=== PATIENT | male | born 1965 | race Caucasian/White ===

== ENCOUNTER 2016-12-19 07:53 | Emergency (ER) | payer BC ==
[2016-12-19 08:04] VITALS: BP 150/103
[2016-12-19] MEDS ORDERED: Aspirin Low Dose CHEW TAB* 81 MG PO ONE (09:32)
--- NOTE | 2017-01-03 00:29 | UC ---
Varun Russell Karl, scribed for Jessica Castle DO on 12/19/16 at 0824 . General HPI - HPI Summary HPI Summary: Pt is a 51 y/o male that presents to [facility] c/o sinus pain/pressure. Pt reported that he was put on abx 6 days ago for infected teeth and since getting his teeth pulled 2 days ago he has had an URI since with sneezing, sinus congestion , rhinorrhea, and a productive cough that is sometimes dry. Pt stated that inhaling has been irritating the inside of his nose and making him sneeze. Pt also reported diaphoresis during his sleep and intermittent SOB for approx 1-2 weeks mostly when he is trying to smoke. Pt stated that the cough has been coupled with his SOB for the several weeks and that his SOB is exacerbated by irritants and exertion. Pt also stated that laying down alleviates his symptoms and standing up or sitting aggravates them. Pt denied fever, nausea, vomiting, CP, jaw pain, ear ache, sore throat, dizziness and swelling in his legs. Hx: smoker 1 PPD. - History of Current Complaint Chief Complaint: UCRespiratory Stated Complaint: SINUS COMPLAINT Time Seen by Provider: 12/19/16 08:14 Hx Obtained From: Patient Onset/Duration: Gradual Onset, Lasting Days - 2, Still Present Timing: Constant Onset Severity: Moderate Current Severity: Moderate Pain Intensity: 8 - 0-10 numeric scale Pain Location at: Face/Sinuses Associated Signs & Symptoms: Positive: Cough, Diaphoresis, SOB. Negative: Chest Pain, Dizziness, Fever, Nausea, Vomiting - Allergy/Home Medications Allergies/Adverse Reactions: Allergies Allergy/AdvReac Type Severity Reaction Status Date / Time No Known Allergies Allergy Verified 12/19/16 08:04 Home Medications: Home Medications Amoxicillin CAP* 500 mg PO TID 12/19/16 [History Confirmed 12/19/16] PMH/Surg Hx/FS Hx/Imm Hx Previously Healthy: Yes - Surgical History Surgical History: Yes Surgery Procedure, Year, and Place: back surgeries - Family History Known Family History: Negative: Cardiac Disease, Hypertension, Diabetes - Social History Alcohol Use: Daily Alcohol Amount: 6-7 beers Substance Use Type: None Smoking Status (MU): Heavy Every Day Tobacco Smoker Amount Used/How Often: 1 ppd Cessation Counseling: Counseled 3+Min - 10 Min - Immunization History Most Recent Influenza Vaccination: fall 2015 Review of Systems Constitutional: Negative Skin: Negative Eyes: Negative ENT: Nasal Discharge, Other - sinus pain Respiratory: Shortness Of Breath, Cough Cardiovascular: Negative Gastrointestinal: Negative Genitourinary: Negative Motor: Negative Neurovascular: Negative Musculoskeletal: Negative Neurological: Negative Psychological: Negative All Other Systems Reviewed And Are Negative: Yes Physical Exam Triage Information Reviewed: Yes Appearance: Well-Appearing, No Pain Distress, Well-Nourished Vital Signs: Initial Vital Signs Temp 97.2 F 12/19/16 07:56 Pulse 88 12/19/16 07:56 Resp 28 12/19/16 07:56 BP 150/103 12/19/16 07:56 Pulse Ox 98 12/19/16 07:56 Vital Signs Reviewed: Yes Eyes: Positive: Conjunctiva Clear. Negative: Discharge ENT: Positive: Hearing grossly normal. Negative: Muffled/hoarse voice Neck exam: Normal Neck: Positive: Supple Respiratory: Positive: Chest non-tender, Lungs clear, Normal breath sounds, No respiratory distress Cardiovascular: Positive: RRR, No Murmur Musculoskeletal Exam: Normal Neurological: Positive: Alert, Muscle Tone Normal Psychological Exam: Normal Psychological: Positive: Age Appropriate Behavior Skin Exam: Normal - warm, dry, normal color Diagnostics - EKG Cardiac Rate: NL - at 69 bpm Cardiac Rhythm: Sinus: Normal - minimal ST elevations in v1 and v3 Course/Dx - Differential Dx - Multi-Symptom Provider Diagnoses: sinusitis, dyspnea Discharge - Discharge Plan Condition: Stable Disposition: AGAINST MEDICAL ADVICE Prescriptions: Amoxicillin/Clavulanate TAB* [Augmentin TAB 875*] 875 mg PO BID #14 tab Patient Education Materials: Sinusitis (ED), Dyspnea (ED) Referrals: No Primary Care Phys,NOPCP [Primary Care Provider] - Additional Instructions: YOU ARE LEAVING AGAINST MEDICAL ADVISE. WE HAVE RECOMMENDED TRANSFER TO THE ED FOR [facility] EVALUATION OF YOUR SHORTNESS OF BREATH. YOU HAVE REFUSED. YOUR RISKS INCLUDE DAMAGE TO THE HEART, CARDIAC ARRYTHMIA, CARDIAC/RESPIRATORY ARREST AND . IF YOU CHANGE YOUR MIND, YOU CAN STILL GO TO THE ED AT ANY TIME. TRY USING THE NETTI POT IN THE MORNINGS DISCUSSED. YOU MUST ALWAYS USE CLEAN WATER. REMEMBER, POSTURE IS AN IMPORTANT FACTOR IN SINUS DRAINAGE. MOVE YOUR NECK, BREATHE. AUGMENTIN: Augmentin is a mixture of amoxicillin and clavulanate. Amoxicillin is a member of the penicillin family. It covers the germs likely to cause ear, bronchial, and urinary infections better than plain penicillin. The addition of clavulanate allows it to cover staph infections of the skin, as well as resistant cases of ear and sinus infections. Your physician has chosen Augmentin for you because of the special nature of your situation. Augmentin is best taken with meals. Nausea after taking the medication is rare, but can occur. Diarrhea can occur, particularly in small children. Vaginal yeast infections, and oral thrush in infants are also common. Contact your physician if these problems occur. Allergy to penicillins is common. If you have had an allergic reaction to any drug of the penicillin family, you should never take any other penicillin. Notify your doctor at once if you develop hives, shortness of breath, swelling, or faintness. ANY TIME YOU TAKE AN ANTIBIOTIC, IT IS IMPORTANT TO REPLENISH THE BODY'S BALANCE OF "GOOD" BACTERIA BY EATING HIGH QUALITY CULTURED FOOD SUCH YOGURT, SAURKRAUT OR GENOVEVA CHI AND/OR TAKING A PROBIOTIC SUPPLEMENT. FOLLOW-UP CARE: You should establish with a private physician for follow-up care TODAYS OR TOMORROW. If you are unable to get a timely appointment, or if you are worsening, call us or return for re-evaluation. An additional resource available to assist in finding the appropriate physician for your health care needs is the [facility]erral Center. You may contact them by calling [phone]. The documentation as recorded by the Varun reveles Karl accurately reflects the service I personally performed and the decisions made by , Jessica Castle DO.
== END 2016-12-19 09:39 | disposition left against medical advice (07) ==
LOC: UCEAST 07:53
DX: J32.9 Chronic sinusitis, unspecified (principal); R06.00 Dyspnea, unspecified; F17.210 Nicotine dependence, cigarettes, uncomplicated; Z71.6 Tobacco abuse counseling
CPT/HCPCS: 93005; 99212; A9270-GY; G0463